=== PATIENT | female | born 1955 | race Caucasian/White ===

== ENCOUNTER 2019-08-23 10:04 | Inpatient (IN) | payer MEDICARE, MEDICAID ==
[~2019-08-23] VITALS: Ht 172.7 cm; Wt 54.5 kg
[2019-08-23] MEDS ORDERED: LORazepam 2 MG/ML VIAL IVP ONE (10:30)
[2019-08-23] MEDS ORDERED: VANCOMYCIN HCL 1 GM/D5% WATER 200 ML IV ONE (10:30)
[2019-08-23] MEDS ORDERED: SODIUM CHLORIDE 0.9% 1,000 ML IV ONE ×2 (10:30→13:15)
[2019-08-23 11:21] LABS: BASOPHILS % (AUTO) 0.3 % (0.0-2.0); EOSINOPHILS % (AUTO) 0.2 % (1.0-6.0); HEMATOCRIT 35.8 % (36-46); HEMOGLOBIN 11.9 g/dL (12.0-16.0); LYMPHOCYTES # (AUTO) 0.8 K/uL (1.0-4.8); LYMPHOCYTES % (AUTO) 12.6 % (22.0-44.0); MEAN CORPUSCULAR HEMOGLOBIN 28.7 pg (26.0-34.0); MEAN CORPUSCULAR HGB CONC 33.4 G/dL (31.0-37.0); MEAN CORPUSCULAR VOLUME 86 fL (80-100); MONOCYTES # (AUTO) 0.6 K/uL (0.1-1.0); NEUTROPHILS # (AUTO) 4.8 K/uL (1.8-7.7); NEUTROPHILS % (AUTO) 76.9 % (40.0-70.0); PLATELET COUNT (AUTO) 285 K/uL (150-450); RED BLOOD CELL COUNT(AUTO) 4.17 MIL/uL (4.00-5.20); RED CELL DISTRIBUTION WIDTH 15.5 % (11.5-14.5)
[2019-08-23 11:33] LABS: ANION GAP 10 mmol/L (8-16); CALCIUM, TOTAL 8.5 mg/dL (8.8-10.5); CARBON DIOXIDE 28 mmol/L (22-29); CHLORIDE 102 mmol/L (98-107); CREATININE 0.77 mg/dL (0.60-1.30); GLOMERULAR FILTR. RATE CALC > 60 mL/min (>60); GLUCOSE,RANDOM 110 mg/dL (70-110); POTASSIUM 3.4 mmol/L (3.5-5.1); SODIUM SERUM 140 mmol/L (136-145); UREA NITROGEN, BLOOD 10 mg/dL (7-18)
[2019-08-23 11:35] LABS: PROTHROMBIN TIME 10.2 SEC (9.4-11.6)
[2019-08-23 11:38] LABS: ALANINE AMINOTRANSFERASE 12 U/L (12-78); ALBUMIN 2.5 g/dL (3.4-5.0); ALKALINE PHOSPHATASE 68 U/L (46-116); ASPARTATE AMINOTRANSFERASE 7 U/L (15-37); BILIRUBIN,TOTAL 0.7 mg/dL (0.1-1.0); CREATINE KINASE, TOTAL ONLY 25 U/L (26-192); TOTAL PROTEIN, SERUM 7.4 g/dL (6.4-8.2)
[2019-08-23 11:41] LABS: LACTIC ACID 1.7 mmol/L (0.4-2.0)
[2019-08-23 11:44] LABS: TROPONIN I < 0.02 ng/mL (0.00-0.05)
[2019-08-23 11:50] LABS: AMMONIA 16 umol/L (11-32)
[2019-08-23 12:57] LABS: APPEARANCE,URINE CLEAR (CLEAR); GLUCOSE, URINE (UA) NEGATIVE (NEGATIVE); KETONES,URINE TRACE mg/dL (NEGATIVE); LEUKOCYTE ESTERASE ,URINE TRACE (NEGATIVE); NITRATE,URINE NEGATIVE (NEGATIVE); OCCULT BLOOD,URINE NEGATIVE (NEGATIVE); PH,URINE 5.5 (5.0-8.0); PROTEIN,URINE TRACE (NEGATIVE)
[2019-08-23 13:01] LABS: BILIRUBIN,URINE PRELIM. POSITIVE (NEGATIVE)
[2019-08-23 13:02] LABS: AMPHET/METH SCREEN,URINE NEGATIVE (NEGATIVE); BARBITURATE SCREEN, URINE NEGATIVE (NEGATIVE); BENZODIAZEPINES SCREEN,URINE NEGATIVE (NEGATIVE); CANNABINOID SCREEN,URINE NEGATIVE (NEGATIVE); COCAINE SCREEN,URINE NEGATIVE (NEGATIVE); METHADONE SCREEN, URINE NEGATIVE (NEGATIVE); OPIATE SCREEN,URINE NEGATIVE (NEGATIVE)
[2019-08-23 13:03] LABS: PHENCYCLIDINE SCREEN,URINE NEGATIVE (NEGATIVE)
[2019-08-23 13:08] LABS: BACTERIA,URINE None Seen /HPF (None Seen); RBC,URINE None Seen /HPF (0-2); SQUAMOUS EPITHELIAL CELL,UR Moderate /LPF (None Seen); WBC,URINE 0-2 /HPF (0-5)
[2019-08-23] MEDS ORDERED: GENTAMICIN 60 MG/NACL ISO-OSM 50 ML IV ONE (13:15)
[2019-08-23] MEDS ORDERED: ONDANSETRON HCL 4 MG/2 ML VIAL IVP PRN ×2 (13:15→19:30)
[2019-08-23] MEDS ORDERED: ACETAMINOPHEN 325 MG TABLET PO PRN ×2 (13:15→19:30)
[2019-08-23 19:04] VITALS: BP 121/54
[2019-08-23] MEDS ORDERED: BISACODYL 10 MG RECTAL RECTAL SUPPOSITORY PR PRN (19:30)
[2019-08-23] MEDS ORDERED: ZOLPIDEM TARTRATE 5 MG TABLET PO PRN (19:30)
[2019-08-23 19:45] VITALS: BP 112/66
[2019-08-23 20:28] LABS: BASOPHILS % (AUTO) 0.4 % (0.0-2.0); EOSINOPHILS % (AUTO) 2.4 % (1.0-6.0); HEMOGLOBIN 10.3 g/dL (12.0-16.0); LYMPHOCYTES # (AUTO) 0.8 K/uL (1.0-4.8); LYMPHOCYTES % (AUTO) 17.5 % (22.0-44.0); MEAN CORPUSCULAR HEMOGLOBIN 28.2 pg (26.0-34.0); MEAN CORPUSCULAR VOLUME 85 fL (80-100); MONOCYTES # (AUTO) 0.6 K/uL (0.1-1.0); MONOCYTES % (AUTO) 12.9 % (2.0-9.0); NEUTROPHILS # (AUTO) 3.1 K/uL (1.8-7.7); NEUTROPHILS % (AUTO) 66.8 % (40.0-70.0); PLATELET COUNT (AUTO) 251 K/uL (150-450); RED BLOOD CELL COUNT(AUTO) 3.64 MIL/uL (4.00-5.20); RED CELL DISTRIBUTION WIDTH 15.7 % (11.5-14.5)
[2019-08-23 20:37] LABS: ANION GAP 9 mmol/L (8-16); CALCIUM, TOTAL 7.8 mg/dL (8.8-10.5); CARBON DIOXIDE 26 mmol/L (22-29); CHLORIDE 105 mmol/L (98-107); CREATININE 0.59 mg/dL (0.60-1.30); GLOMERULAR FILTR. RATE CALC > 60 mL/min (>60); GLUCOSE,RANDOM 153 mg/dL (70-110); POTASSIUM 3.7 mmol/L (3.5-5.1); SODIUM SERUM 140 mmol/L (136-145); UREA NITROGEN, BLOOD 9 mg/dL (7-18)
[2019-08-23 20:43] LABS: ALANINE AMINOTRANSFERASE 8 U/L (12-78); ALBUMIN 1.9 g/dL (3.4-5.0); ALKALINE PHOSPHATASE 49 U/L (46-116); ASPARTATE AMINOTRANSFERASE 8 U/L (15-37); BILIRUBIN,TOTAL 0.3 mg/dL (0.1-1.0); TOTAL PROTEIN, SERUM 5.8 g/dL (6.4-8.2)
[2019-08-23] MEDS: DOCUSATE SODIUM 100 MG CAPSULE PO SCH (21:00)
[2019-08-23] MEDS: FAMOTIDINE 10 MG/ML 2 ML VIAL IVP SCH (21:21)
[2019-08-23] MEDS: PIPERACILLIN/TAZO 3.375 GM/D5W 50 ML IV SCH (21:21)
[2019-08-24] MEDS: LORazepam 2 MG/ML VIAL IVP PRN (00:45)
[2019-08-24] MEDS: HEPARIN SODIUM,PORCINE 5,000 UNITS/ML VIAL SQ SCH ×4 (00:46→23:23)
[2019-08-24 00:47] VITALS: BP 121/73
[2019-08-24] MEDS: PIPERACILLIN/TAZO 3.375 GM/D5W 50 ML IV SCH ×4 (02:56→22:44)
[2019-08-24 04:00] VITALS: BP 117/72
[2019-08-24 07:29] VITALS: BP 119/70
[2019-08-24] MEDS: DOCUSATE SODIUM 100 MG CAPSULE PO SCH ×3 (09:41→21:06)
[2019-08-24] MEDS: FAMOTIDINE 10 MG/ML 2 ML VIAL IVP SCH ×2 (10:28→21:06)
[2019-08-24 11:27] VITALS: BP 126/73
[2019-08-24 16:19] VITALS: BP 120/77
[2019-08-24] MEDS: LURASIDONE HCL 40 MG TABLET PO SCH (18:00)
[2019-08-24 20:30] VITALS: BP 103/62
[2019-08-24] MEDS: HYDROCODONE/ACETAMINOPHEN 5-325 MG TABLET PO PRN (22:44)
[2019-08-25 00:13] VITALS: BP 114/72
[2019-08-25] MEDS: MAGNESIUM HYDROXIDE SUSPENSION 30 ML UDCUP PO PRN ×2 (01:50→16:47)
[2019-08-25] MEDS: LORazepam 2 MG/ML VIAL IVP PRN (02:13)
[2019-08-25] MEDS: PIPERACILLIN/TAZO 3.375 GM/D5W 50 ML IV SCH ×4 (02:13→20:42)
[2019-08-25 04:28] VITALS: BP 119/79
[2019-08-25 07:22] VITALS: BP 127/88
[2019-08-25 07:31] LABS: MAGNESIUM 2.1 mg/dL (1.80-2.40); PHOSPHORUS 3.7 mg/dL (2.5-4.9)
[2019-08-25] MEDS: LURASIDONE HCL 40 MG TABLET PO SCH ×2 (08:38→18:48)
[2019-08-25] MEDS: THIAMINE 100 MG TABLET PO SCH (08:38)
[2019-08-25] MEDS: MULTIVITAMINS WITH MINERALS, THERAPEUTIC TABLET PO SCH (08:38)
[2019-08-25] MEDS: HYDROCODONE/ACETAMINOPHEN 5-325 MG TABLET PO PRN ×2 (08:39→20:42)
[2019-08-25] MEDS: FAMOTIDINE 10 MG/ML 2 ML VIAL IVP SCH ×2 (08:39→20:41)
[2019-08-25] MEDS: DOCUSATE SODIUM 100 MG CAPSULE PO SCH ×2 (08:39→20:41)
[2019-08-25] MEDS: HEPARIN SODIUM,PORCINE 5,000 UNITS/ML VIAL SQ SCH ×2 (08:47→16:47)
[2019-08-25 11:01] VITALS: BP 115/76
[2019-08-25 17:34] VITALS: BP 120/73
[2019-08-25] MEDS ORDERED: BARIUM SULFATE 0.1% SUSPENSION 450 ML BOTTLE ONE (18:01)
[2019-08-25 20:40] VITALS: BP 127/79
[2019-08-25] MEDS ORDERED: SODIUM CHLORIDE 0.9% 500 ML IV ONE (21:17)
[2019-08-26 00:12] VITALS: BP 126/85
[2019-08-26] MEDS: HEPARIN SODIUM,PORCINE 5,000 UNITS/ML VIAL SQ SCH ×3 (01:05→15:19)
[2019-08-26] MEDS: PIPERACILLIN/TAZO 3.375 GM/D5W 50 ML IV SCH ×4 (01:05→21:13)
[2019-08-26 04:23] VITALS: BP 127/78
[2019-08-26] MEDS: HYDROCODONE/ACETAMINOPHEN 5-325 MG TABLET PO PRN (07:22)
[2019-08-26 08:43] VITALS: BP 111/69
[2019-08-26] MEDS: DOCUSATE SODIUM 100 MG CAPSULE PO SCH ×2 (09:09→21:00)
[2019-08-26] MEDS: MULTIVITAMINS WITH MINERALS, THERAPEUTIC TABLET PO SCH (09:09)
[2019-08-26] MEDS: LURASIDONE HCL 40 MG TABLET PO SCH ×2 (09:09→18:00)
[2019-08-26] MEDS: THIAMINE 100 MG TABLET PO SCH (09:09)
[2019-08-26] MEDS: FAMOTIDINE 10 MG/ML 2 ML VIAL IVP SCH ×2 (09:11→21:13)
[2019-08-26 12:57] VITALS: BP 121/68
[2019-08-26 16:00] VITALS: BP 129/78
[2019-08-26 20:00] VITALS: BP 140/75
[2019-08-27 00:37] VITALS: BP 114/65
[2019-08-27] MEDS: PIPERACILLIN/TAZO 3.375 GM/D5W 50 ML IV SCH ×4 (00:49→20:12)
[2019-08-27] MEDS: HEPARIN SODIUM,PORCINE 5,000 UNITS/ML VIAL SQ SCH ×3 (00:50→15:43)
[2019-08-27 05:51] VITALS: BP 116/75
[2019-08-27 07:55] VITALS: BP 123/71
[2019-08-27] MEDS: LURASIDONE HCL 40 MG TABLET PO SCH ×2 (08:39→17:40)
[2019-08-27] MEDS: MULTIVITAMINS WITH MINERALS, THERAPEUTIC TABLET PO SCH (08:39)
[2019-08-27] MEDS: THIAMINE 100 MG TABLET PO SCH (08:39)
[2019-08-27] MEDS: FAMOTIDINE 10 MG/ML 2 ML VIAL IVP SCH ×2 (08:40→20:12)
[2019-08-27] MEDS: DOCUSATE SODIUM 100 MG CAPSULE PO SCH ×2 (08:48→20:12)
[2019-08-27] MEDS: HYDROCODONE/ACETAMINOPHEN 5-325 MG TABLET PO PRN (14:52)
[2019-08-27 17:43] VITALS: BP 126/75
[2019-08-27 20:57] VITALS: BP 133/67
[2019-08-28] MEDS: HEPARIN SODIUM,PORCINE 5,000 UNITS/ML VIAL SQ SCH ×2 (00:39→09:02)
[2019-08-28] MEDS: PIPERACILLIN/TAZO 3.375 GM/D5W 50 ML IV SCH ×3 (01:04→14:56)
[2019-08-28] MEDS: HYDROCODONE/ACETAMINOPHEN 5-325 MG TABLET PO PRN ×2 (01:45→11:16)
[2019-08-28 05:24] VITALS: BP 112/70
[2019-08-28 08:18] VITALS: BP 109/75
[2019-08-28] MEDS: DOCUSATE SODIUM 100 MG CAPSULE PO SCH (09:00)
[2019-08-28] MEDS: LURASIDONE HCL 40 MG TABLET PO SCH (09:02)
[2019-08-28] MEDS: FAMOTIDINE 10 MG/ML 2 ML VIAL IVP SCH (09:02)
[2019-08-28] MEDS: MULTIVITAMINS WITH MINERALS, THERAPEUTIC TABLET PO SCH (09:02)
[2019-08-28] MEDS: THIAMINE 100 MG TABLET PO SCH (09:02)
[2019-08-28 10:49] VITALS: BP 126/74
[2019-08-28] MEDS ORDERED: LURA40TA2 PO (10:49)
[2019-08-28] MEDS ORDERED: MULT-264 PO (10:51)
[2019-08-28] MEDS ORDERED: THIA100T80 PO (10:52)
[2019-08-28] MEDS ORDERED: ACET-3207 PO (10:53)
[2019-08-28] MEDS ORDERED: LORA2I IM (10:58)
[2019-08-28] MEDS ORDERED: HYDR-3290 PO (11:00)
[2019-08-28] MEDS ORDERED: BISA-151 PO (11:02)
[2019-08-28] MEDS ORDERED: VANC750F2 IV (11:10)
[2019-08-28] MEDS ORDERED: METR500 PO (11:11)
== END 2019-08-28 15:19 | DRG 70 ==
LOC: EMS 10:06 → EDBD 10:06 → 5S 16:32 → 5N 08-24 17:05
PROVIDERS: ADMIT Hospitalist; ATTEND Hospitalist
DX: G93.41 Metabolic encephalopathy (principal); E43 Unspecified severe protein-calorie malnutrition; L03.311 Cellulitis of abdominal wall; Z68.1 Body mass index [BMI] 19.9 or less, adult; N39.0 Urinary tract infection, site not specified; D64.9 Anemia, unspecified; E87.6 Hypokalemia; Z20.828 Contact with and (suspected) exposure to other viral communicable diseases; Z59.0 Homelessness; Z93.3 Colostomy status; Z88.8 Allergy status to other drugs, medicaments and biological substances; F41.9 Anxiety disorder, unspecified; F25.0 Schizoaffective disorder, bipolar type
CPT/HCPCS: 51702; 70450; 74176; 83605; 83735; 84100; 87040; 93005; 97162; J1580; J1644; J2060; J2405; J2543; J3370; J3490; J7030; J7040

== ENCOUNTER 2019-11-08 10:46 | Inpatient (IN) | payer MEDICARE, MEDICAID ==
[~2019-11-08] VITALS: Ht 170.2 cm; Wt 71.4 kg
[~2019-11-08 10:46] MED LIST: ACET-3207 PO; BISA-151 PO; HYDR-3290 PO; LORA2I IM; LURA40TA2 PO; METR500 PO; MULT-264 PO; THIA100T80 PO; VANC750F2 IV
[2019-11-08] MEDS ORDERED: LORazepam 2 MG/ML VIAL IM ONE ×2 (11:15→13:00)
[2019-11-08] MEDS ORDERED: DiphenhydrAMINE HCL 50 MG/ML VIAL IM ONE (11:15)
[2019-11-08] MEDS ORDERED: HALOPERIDOL LACTATE 5 MG/ML VIAL IM ONE (11:15)
[2019-11-08 13:15] LABS: APPEARANCE,URINE CLEAR (CLEAR); BILIRUBIN,URINE NEGATIVE (NEGATIVE); GLUCOSE, URINE (UA) NEGATIVE (NEGATIVE); KETONES,URINE NEGATIVE (NEGATIVE); LEUKOCYTE ESTERASE ,URINE TRACE (NEGATIVE); NITRATE,URINE NEGATIVE (NEGATIVE); OCCULT BLOOD,URINE NEGATIVE (NEGATIVE); PROTEIN,URINE NEGATIVE (NEGATIVE); UROBILINOGEN,URINE 0.2 mg/dL (<=1.0)
[2019-11-08 13:20] LABS: AMPHET/METH SCREEN,URINE NEGATIVE (NEGATIVE); BARBITURATE SCREEN, URINE NEGATIVE (NEGATIVE); BENZODIAZEPINES SCREEN,URINE NEGATIVE (NEGATIVE); CANNABINOID SCREEN,URINE NEGATIVE (NEGATIVE); COCAINE SCREEN,URINE NEGATIVE (NEGATIVE); METHADONE SCREEN, URINE NEGATIVE (NEGATIVE); OPIATE SCREEN,URINE NEGATIVE (NEGATIVE)
[2019-11-08 13:21] LABS: PHENCYCLIDINE SCREEN,URINE NEGATIVE (NEGATIVE)
[2019-11-08 13:28] LABS: BACTERIA,URINE None Seen /HPF (None Seen); RBC,URINE None Seen /HPF (0-2); SQUAMOUS EPITHELIAL CELL,UR Few /LPF (None Seen); WBC,URINE 0-2 /HPF (0-5)
[2019-11-08 13:59] LABS: BASOPHILS % (AUTO) 0.7 % (0.0-2.0); EOSINOPHILS % (AUTO) 4.7 % (1.0-6.0); HEMATOCRIT 31.4 % (36-46); HEMOGLOBIN 10.4 g/dL (12.0-16.0); LYMPHOCYTES # (AUTO) 1.2 K/uL (1.0-4.8); LYMPHOCYTES % (AUTO) 23.6 % (22.0-44.0); MEAN CORPUSCULAR HEMOGLOBIN 28.5 pg (26.0-34.0); MEAN CORPUSCULAR VOLUME 86 fL (80-100); MONOCYTES # (AUTO) 0.7 K/uL (0.1-1.0); MONOCYTES % (AUTO) 12.5 % (2.0-9.0); NEUTROPHILS # (AUTO) 3.1 K/uL (1.8-7.7); NEUTROPHILS % (AUTO) 58.5 % (40.0-70.0); PLATELET COUNT (AUTO) 296 K/uL (150-450); RED BLOOD CELL COUNT(AUTO) 3.64 MIL/uL (4.00-5.20); RED CELL DISTRIBUTION WIDTH 16.2 % (11.5-14.5)
[2019-11-08 14:13] LABS: ANION GAP 7 mmol/L (8-16); CALCIUM, TOTAL 8.8 mg/dL (8.8-10.5); CARBON DIOXIDE 28 mmol/L (22-29); CHLORIDE 107 mmol/L (98-107); CREATININE 1.01 mg/dL (0.60-1.30); GLOMERULAR FILTR. RATE CALC 55 mL/min (>60); GLUCOSE,RANDOM 97 mg/dL (70-110); POTASSIUM 4.1 mmol/L (3.5-5.1); SODIUM SERUM 142 mmol/L (136-145); UREA NITROGEN, BLOOD 12 mg/dL (7-18)
[2019-11-08 14:17] LABS: SALICYLATE 2.8 mg/dL (2.8-20.0)
[2019-11-08 14:18] LABS: ACETAMINOPHEN < 2 mcg/mL (10-30); ALANINE AMINOTRANSFERASE 41 U/L (12-78); ALBUMIN 3.3 g/dL (3.4-5.0); ALKALINE PHOSPHATASE 65 U/L (46-116); ASPARTATE AMINOTRANSFERASE 28 U/L (15-37); BILIRUBIN,TOTAL 0.3 mg/dL (0.1-1.0); TOTAL PROTEIN, SERUM 7.1 g/dL (6.4-8.2)
[2019-11-08] MEDS ORDERED: ZOLPIDEM TARTRATE 10 MG TABLET PO PRN (15:00)
[2019-11-08 19:49] VITALS: BP 131/80
[2019-11-08 19:58] VITALS: BP 131/80
[2019-11-08] MEDS ORDERED: PNEUMOCOCCAL VACCINE POLYVALENT 0.5 ML VIAL [PPSV23] IM ONE (20:00)
[2019-11-08 21:50] VITALS: BP 115/76
[2019-11-09] MEDS: LORazepam 2 MG TABLET PO PRN ×3 (05:57→20:47)
[2019-11-09] MEDS ORDERED: NICOTINE 14 MG/24 HOUR PATCH TD PRN (08:00)
[2019-11-09] MEDS ORDERED: IBUPROFEN 400 MG TABLET PO PRN (08:00)
[2019-11-09] MEDS ORDERED: MAG HYDROX/AL HYDROX/SIMETH ES 30 ML SUSPENSION UDCUP PO PRN (08:00)
[2019-11-09] MEDS ORDERED: PETROLATUM,WHITE 28 GM JELLY TP PRN (08:00)
[2019-11-09] MEDS ORDERED: ALBUTEROL SULFATE HFA 90 MCG/PUFF 8 GM INHALER IH PRN (08:00)
[2019-11-09] MEDS ORDERED: MAGNESIUM HYDROXIDE SUSPENSION 30 ML UDCUP PO PRN (08:00)
[2019-11-09] MEDS ORDERED: LOPERAMIDE HCL 2 MG CAPSULE PO PRN (08:00)
[2019-11-09] MEDS ORDERED: GuaiFENesin/D-METHORPHAN [SUGAR-FREE] 200-20MG/10 ML SYRUP UDCUP PO PRN (08:00)
[2019-11-09] MEDS ORDERED: DOCUSATE SODIUM 100 MG CAPSULE PO PRN (08:00)
[2019-11-09] MEDS ORDERED: ACETAMINOPHEN 325 MG TABLET PO PRN (08:00)
[2019-11-09] MEDS ORDERED: CloNIDine HCL 0.1 MG TABLET PO PRN (08:00)
[2019-11-09 08:11] VITALS: BP 128/74
[2019-11-09] MEDS: MULTIVITAMINS WITH MINERALS, THERAPEUTIC TABLET PO SCH (09:00)
[2019-11-09] MEDS: THIAMINE 100 MG TABLET PO SCH (09:48)
[2019-11-09] MEDS: HALOPERIDOL 5 MG TABLET PO PRN ×2 (16:03→20:47)
[2019-11-09] MEDS: DIVALPROEX SODIUM 250 MG DR TABLET PO SCH (16:03)
[2019-11-09 16:04] VITALS: BP 124/81
[2019-11-09] MEDS: LURASIDONE HCL 40 MG TABLET PO SCH (17:31)
[2019-11-10 00:45] VITALS: BP 157/88
[2019-11-10] MEDS: LORazepam 2 MG TABLET PO PRN ×2 (05:36→15:58)
[2019-11-10] MEDS: LURASIDONE HCL 40 MG TABLET PO SCH ×2 (07:14→17:30)
[2019-11-10 08:00] VITALS: BP 129/83
[2019-11-10] MEDS: DIVALPROEX SODIUM 250 MG DR TABLET PO SCH ×2 (09:00→17:00)
[2019-11-10] MEDS: MULTIVITAMINS WITH MINERALS, THERAPEUTIC TABLET PO SCH (09:00)
[2019-11-10] MEDS: THIAMINE 100 MG TABLET PO SCH (09:00)
[2019-11-10 15:58] VITALS: BP 151/96
[2019-11-10] MEDS: MUPIROCIN CALCIUM 2% 22 GM OINTMENT NASAL SCH (17:00)
[2019-11-11] MEDS: LORazepam 2 MG TABLET PO PRN ×2 (05:26→14:00)
[2019-11-11] MEDS: LURASIDONE HCL 40 MG TABLET PO SCH ×2 (06:49→16:32)
[2019-11-11 08:35] VITALS: BP 136/87
[2019-11-11] MEDS: DIVALPROEX SODIUM 250 MG DR TABLET PO SCH ×2 (09:50→16:32)
[2019-11-11] MEDS: THIAMINE 100 MG TABLET PO SCH (09:51)
[2019-11-11] MEDS: MUPIROCIN CALCIUM 2% 22 GM OINTMENT NASAL SCH ×2 (09:51→16:33)
[2019-11-11] MEDS: MULTIVITAMINS WITH MINERALS, THERAPEUTIC TABLET PO SCH (09:51)
[2019-11-11] MEDS: ONDANSETRON HCL 4 MG TABLET PO PRN ×2 (14:00→22:11)
[2019-11-12] MEDS: LORazepam 2 MG TABLET PO PRN ×3 (03:35→21:03)
[2019-11-12] MEDS: LURASIDONE HCL 40 MG TABLET PO SCH ×2 (06:38→17:21)
[2019-11-12] MEDS: DIVALPROEX SODIUM 250 MG DR TABLET PO SCH ×2 (08:04→17:21)
[2019-11-12] MEDS: MULTIVITAMINS WITH MINERALS, THERAPEUTIC TABLET PO SCH (08:05)
[2019-11-12] MEDS: THIAMINE 100 MG TABLET PO SCH (08:05)
[2019-11-12] MEDS: MUPIROCIN CALCIUM 2% 22 GM OINTMENT NASAL SCH ×2 (08:08→17:21)
[2019-11-12 11:00] VITALS: BP 154/80
[2019-11-13] VITALS: BP 130/97
[2019-11-13] MEDS: LORazepam 2 MG TABLET PO PRN ×2 (03:53→12:36)
[2019-11-13] MEDS: LURASIDONE HCL 40 MG TABLET PO SCH ×2 (06:57→16:36)
[2019-11-13] MEDS: MUPIROCIN CALCIUM 2% 22 GM OINTMENT NASAL SCH ×2 (08:20→16:36)
[2019-11-13] MEDS: FOLIC ACID 1 MG TABLET PO SCH (08:21)
[2019-11-13] MEDS: MULTIVITAMINS WITH MINERALS, THERAPEUTIC TABLET PO SCH (08:21)
[2019-11-13] MEDS: DIVALPROEX SODIUM 250 MG DR TABLET PO SCH ×2 (08:21→16:36)
[2019-11-13] MEDS: THIAMINE 100 MG TABLET PO SCH (08:22)
[2019-11-13] MEDS: BICTEGRAV/EMTRICIT/TENOFOV ALA 50-200-25 MG TABLET PO SCH (08:24)
[2019-11-13 09:00] VITALS: BP 114/71
[2019-11-13] MEDS: ONDANSETRON HCL 4 MG TABLET PO PRN (20:16)
[2019-11-13 20:18] VITALS: BP 117/73
[2019-11-14] VITALS: BP 110/70
[2019-11-14] MEDS: HALOPERIDOL 5 MG TABLET PO PRN (00:08)
[2019-11-14] MEDS: LORazepam 2 MG TABLET PO PRN ×2 (00:08→06:07)
[2019-11-14] MEDS: LURASIDONE HCL 40 MG TABLET PO SCH (07:08)
[2019-11-14] MEDS: MULTIVITAMINS WITH MINERALS, THERAPEUTIC TABLET PO SCH (08:21)
[2019-11-14] MEDS: MUPIROCIN CALCIUM 2% 22 GM OINTMENT NASAL SCH (08:22)
[2019-11-14] MEDS: BICTEGRAV/EMTRICIT/TENOFOV ALA 50-200-25 MG TABLET PO SCH (08:22)
[2019-11-14] MEDS: DIVALPROEX SODIUM 250 MG DR TABLET PO SCH (08:22)
[2019-11-14] MEDS: FOLIC ACID 1 MG TABLET PO SCH (08:22)
[2019-11-14] MEDS: THIAMINE 100 MG TABLET PO SCH (09:20)
[2019-11-14] MEDS ORDERED: DIVA-111 PO (09:21)
[2019-11-14] MEDS ORDERED: BICT1TAB PO (09:41)
[2019-11-14] MEDS ORDERED: MUPI1OIN5 NASAL (09:41)
== END 2019-11-14 13:40 | DRG 885 ==
LOC: EMS 10:49 → B3A 16:01 → 3EX 19:32
PROVIDERS: ADMIT Psychiatry & Neurology Child & Adolescent Psychiatry; ATTEND Psychiatry & Neurology Child & Adolescent Psychiatry
DX: F25.0 Schizoaffective disorder, bipolar type (principal); E43 Unspecified severe protein-calorie malnutrition; Z93.3 Colostomy status; D64.9 Anemia, unspecified; Z21 Asymptomatic human immunodeficiency virus [HIV] infection status; Z59.0 Homelessness; Z88.8 Allergy status to other drugs, medicaments and biological substances
CPT/HCPCS: 87081; 87147; 99291; G0378; G0480; G0481; J1200; J1630; J2060; Q0162